=== PATIENT | male | born 1955 | race Hispanic/Latino ===

== ENCOUNTER 2021-03-24 04:37 | Inpatient (IN) | payer MEDICARE ==
[2021-03-24 06:24] LABS: Hematocrit 45.8 % (35.5-45.6); Hemoglobin 15.4 gm/dl (11.8-15.2); Mean Corpuscular HGB Conc 34 % (32-34); Mean Corpuscular Volume 104 fl (84-94); Platelet Count 187 K/mm3 (140-440); Red Blood Count 4.42 M/mm3 (3.65-5.03); Red Cell Distribution Width 14.3 % (13.2-15.2)
--- NOTE | 2021-03-24 06:35 | Emergency Department Report ---
HPI - General Chief Complaint: Nausea/Vomiting/Diarrhea Time Seen by Provider: 03/24/21 06:30 - HPI HPI: 66-year-old male presents to the emergency department with complaint of a 4 to 5-day history of copious diarrhea and fever. There currently driving up from [place] on the way back home to [facility]. Patient's says that he had a fever about 102.5 when she checked it on Saturday night. 2 nights ago the patient had a low temperature of about 91 F. She wrapped in blankets and got his temperature back to about 98 F, but after speaking with her PCP in [place] they called EMS. EMS came out to evaluate him and felt that he was dehydrated. The patient had "another fall" yesterday. Patient is a history of esophageal cancer from 4 years ago that is currently in remission. The patient recently was found to have bilateral PE and lower extremity DVT and was hospitalized in [place] about 6 weeks ago. He is currently on Eliquis and has been taking it compliantly. Patient has some mild abdominal pain just prior to having a bowel movement and then it resolves. ED Past Medical Hx - Past Medical History Previous Medical History?: Yes Hx of Cancer: Yes Additional medical history: DVT PE - Surgical History Past Surgical History?: Yes Additional Surgical History: knee surgery - Medications Home Medications: Home Medications Medication Instructions Recorded Confirmed Last Taken Type Apixaban [Eliquis] 5 mg PO Q12H 03/24/21 03/24/21 03/24/21 History 5 mg Budesonide/Formoterol Fumarate 2 puff IH BID 03/24/21 03/24/21 03/23/21 History [Symbicort 160-4.5 Mcg Inhaler] 2 puff Glucosamine/D3/Boswellia Laquita 2 tab PO QAM 03/24/21 03/24/21 03/23/21 History [Osteo Bi-Flex Tablet] 2 tab Ipratropium Lindsay 2 spray NS BID 03/24/21 03/24/21 03/23/21 History 2 sprays Multivit-Mins/Iron/Folic/Lycop 1 each PO QDAY 03/24/21 03/24/21 03/23/21 History [Centrum Men's Tablet] 1 tab OLANZapine [Zyprexa] 5 mg PO QHS 03/24/21 03/24/21 03/23/21 History 5 mg Pantoprazole [Protonix] 40 mg PO QDAY 03/24/21 03/24/21 03/23/21 History 40 mg Rosuvastatin Calcium 5 mg PO QHS 03/24/21 03/24/21 03/23/21 History 5 mg Sennosides/Docusate Sodium 2 each PO QHS 03/24/21 03/24/21 03/19/21 History [Senna-S 8.6-50 mg Tablet] 2 tabs Tamsulosin [Flomax] 0.4 mg PO QDAY 03/24/21 03/24/21 03/23/21 History 0.4mg clonazePAM [ Klonopin] 0.5 mg PO BID PRN 03/24/21 03/24/21 03/23/21 History 0.5mg ED Review of Systems ROS: Stated complaint: DIARRHEA/FEVER/DEHYDRATED Other details as noted in HPI Comment: All other systems reviewed and negative Constitutional: weakness. denies: chills, fever Eyes: denies: eye pain, vision change ENT: denies: ear pain, throat pain Respiratory: denies: cough, shortness of breath Cardiovascular: denies: chest pain, palpitations Gastrointestinal: abdominal pain, diarrhea. denies: vomiting Genitourinary: denies: dysuria, discharge Musculoskeletal: denies: back pain, arthralgia Skin: denies: rash, lesions Neurological: denies: headache, weakness Physical Exam - Physical Exam Vital Signs: Vital Signs 03/24/21 04:44 Temperature 97.9 F Pulse Rate 69 Respiratory 18 Rate Blood Pressure 73/42 O2 Sat by Pulse 100 Oximetry Physical Exam: GENERAL: The patient is frail and ill-appearing. HENT: Normocephalic. Atraumatic. Patient has moist mucous membranes. EYES: Extraocular motions are intact. NECK: Supple. Trachea is midline. CHEST/LUNGS: Clear to auscultation. There is no respiratory distress noted. HEART/CARDIOVASCULAR: Regular. There is mild tachycardia. There is no murmur. ABDOMEN: Abdomen is soft, nontender. Patient has hyperactive bowel sounds. There is no abdominal distention. SKIN: Skin is warm and dry. Patient has abrasions to the dorsal right hand. NEURO: The patient is awake, alert, and oriented. The patient is cooperative. The patient has no focal neurologic deficits. Normal speech. Cranial nerves II through XII grossly intact. MUSCULOSKELETAL: There is no tenderness or deformity. ED Course Vital Signs 03/24/21 04:44 Temperature 97.9 F Pulse Rate 69 Respiratory 18 Rate Blood Pressure 73/42 O2 Sat by Pulse 100 Oximetry ED Medical Decision Making - Lab Data Result diagrams: 03/24/21 05:59 03/24/21 06:02 Lab Results 03/24/21 03/24/21 03/24/21 Range/Units 05:59 06:02 06:02 WBC 5.4 (4.5-11.0) K/mm3 RBC 4.42 (3.65-5.03) M/mm3 Hgb 15.4 H (11.8-15.2) gm/dl Hct 45.8 H (35.5-45.6) % MCV 104 H (84-94) fl MCH 35 H (28-32) pg MCHC 34 (32-34) % RDW 14.3 (13.2-15.2) % Plt Count 187 (140-440) K/mm3 Add Manual Diff Complete Total Counted 100 Seg Neuts % (Manual) 75.0 H (40.0-70.0) % Band Neutrophils % 10.0 % Lymphocytes % (Manual) 6.0 L (13.4-35.0) % Monocytes % (Manual) 8.0 H (0.0-7.3) % Myelocytes % 1.0 % Nucleated RBC % Not Reportable Seg Neutrophils # Man 4.1 (1.8-7.7) K/mm3 Band Neutrophils # 0.5 K/mm3 Lymphocytes # (Manual) 0.3 L (1.2-5.4) K/mm3 Abs React Lymphs (Man) 0.0 K/mm3 Monocytes # (Manual) 0.4 (0.0-0.8) K/mm3 Eosinophils # (Manual) 0.0 (0.0-0.4) K/mm3 Basophils # (Manual) 0.0 (0.0-0.1) K/mm3 Metamyelocytes # 0.0 K/mm3 Myelocytes # 0.1 K/mm3 Promyelocytes # 0.0 K/mm3 Blast Cells # 0.0 K/mm3 WBC Morphology Not Reportable Hypersegmented Neuts Not Reportable Hyposegmented Neuts Not Reportable Hypogranular Neuts Not Reportable Smudge Cells Not Reportable Toxic Granulation Not Reportable Toxic Vacuolation Not Reportable Dohle Bodies Not Reportable Pelger-Huet Anomaly Not Reportable Luzmaria Rods Not Reportable Platelet Estimate Consistent w auto Clumped Platelets Not Reportable Plt Clumps, EDTA Not Reportable Large Platelets Not Reportable Giant Platelets Not Reportable Platelet Satelliting Not Reportable Plt Morphology Comment Not Reportable RBC Morphology Not Reportable Dimorphic RBCs Not Reportable Polychromasia Not Reportable Hypochromasia Not Reportable Poikilocytosis Not Reportable Anisocytosis Not Reportable Microcytosis Not Reportable Macrocytosis 1+ Spherocytes Not Reportable Pappenheimer Bodies Not Reportable Sickle Cells Not Reportable Target Cells Not Reportable Tear Drop Cells Not Reportable Ovalocytes Not Reportable Helmet Cells Not Reportable Ibanez-Wiggins Bodies Not Reportable Aledo Rings Not Reportable Deerfield Cells Not Reportable Bite Cells Not Reportable Crenated Cell Not Reportable Elliptocytes Not Reportable Acanthocytes (Spur) Not Reportable Rouleaux Not Reportable Hemoglobin C Crystals Not Reportable Schistocytes Not Reportable Malaria parasites Not Reportable Anil Bodies Not Reportable Hem Pathologist Commnt No Sodium 128 L (137-145) mmol/L Potassium 2.7 L* (3.6-5.0) mmol/L Chloride 83.6 L (98-107) mmol/L Carbon Dioxide 24 (22-30) mmol/L Anion Gap 23 mmol/L BUN 32 H (9-20) mg/dL Creatinine 2.7 H (0.8-1.3) mg/dL Estimated GFR 24 ml/min BUN/Creatinine Ratio 12 % Glucose 153 H (75-100) mg/dL Calcium 8.6 (8.4-10.2) mg/dL Magnesium (1.7-2.3) mg/dL Total Bilirubin 1.60 H (0.1-1.2) mg/dL AST 110 H (5-40) units/L ALT 42 (7-56) units/L Alkaline Phosphatase 156 H (35-129) units/L Troponin T < 0.010 (0.00-0.029) ng/mL Total Protein 7.6 (6.3-8.2) g/dL Albumin 3.2 L (3.9-5) g/dL Albumin/Globulin Ratio 0.7 % 03/24/21 Range/Units 06:02 WBC (4.5-11.0) K/mm3 RBC (3.65-5.03) M/mm3 Hgb (11.8-15.2) gm/dl Hct (35.5-45.6) % MCV (84-94) fl MCH (28-32) pg MCHC (32-34) % RDW (13.2-15.2) % Plt Count (140-440) K/mm3 Add Manual Diff Total Counted Seg Neuts % (Manual) (40.0-70.0) % Band Neutrophils % % Lymphocytes % (Manual) (13.4-35.0) % Monocytes % (Manual) (0.0-7.3) % Myelocytes % % Nucleated RBC % Seg Neutrophils # Man (1.8-7.7) K/mm3 Band Neutrophils # K/mm3 Lymphocytes # (Manual) (1.2-5.4) K/mm3 Abs React Lymphs (Man) K/mm3 Monocytes # (Manual) (0.0-0.8) K/mm3 Eosinophils # (Manual) (0.0-0.4) K/mm3 Basophils # (Manual) (0.0-0.1) K/mm3 Metamyelocytes # K/mm3 Myelocytes # K/mm3 Promyelocytes # K/mm3 Blast Cells # K/mm3 WBC Morphology Hypersegmented Neuts Hyposegmented Neuts Hypogranular Neuts Smudge Cells Toxic Granulation Toxic Vacuolation Dohle Bodies Pelger-Huet Anomaly Luzmaria Rods Platelet Estimate Clumped Platelets Plt Clumps, EDTA Large Platelets Giant Platelets Platelet Satelliting Plt Morphology Comment RBC Morphology Dimorphic RBCs Polychromasia Hypochromasia Poikilocytosis Anisocytosis Microcytosis Macrocytosis Spherocytes Pappenheimer Bodies Sickle Cells Target Cells Tear Drop Cells Ovalocytes Helmet Cells Ibanez-Wiggins Bodies Aledo Rings Ronaldo Cells Bite Cells Crenated Cell Elliptocytes Acanthocytes (Spur) Rouleaux Hemoglobin C Crystals Schistocytes Malaria parasites Anil Bodies Hem Pathologist Commnt Sodium (137-145) mmol/L Potassium (3.6-5.0) mmol/L Chloride (98-107) mmol/L Carbon Dioxide (22-30) mmol/L Anion Gap mmol/L BUN (9-20) mg/dL Creatinine (0.8-1.3) mg/dL Estimated GFR ml/min BUN/Creatinine Ratio % Glucose (75-100) mg/dL Calcium (8.4-10.2) mg/dL Magnesium 1.50 L (1.7-2.3) mg/dL Total Bilirubin (0.1-1.2) mg/dL AST (5-40) units/L ALT (7-56) units/L Alkaline Phosphatase (35-129) units/L Troponin T (0.00-0.029) ng/mL Total Protein (6.3-8.2) g/dL Albumin (3.9-5) g/dL Albumin/Globulin Ratio % - Radiology Data Radiology results: image reviewed interpreted by me: Chest x-ray does not show any acute process. There are no pleural effusions, obvious pneumonia and there is no pneumothorax. No widened mediastinum. Abdominal x-ray shows nonspecific nonobstructive bowel gas. No free air. - Medical Decision Making This patient presented to the emergency department with a 5-day history of diarrhea, some recent fevers, and some generalized weakness including a fall earlier this morning. On examination the patient does not have any focal, motor or sensory deficits and his cranial nerves are intact. The abdomen is soft, nondistended, but has hyperactive bowel sounds. Patient's labs shows multiple electrolyte derangements including hypokalemia, hypochloremia, hypomagnesemia, hyponatremia, and the patient has acute kidney injury with a GFR of 24. The patient was found to be hypotensive with initial map of about 54. The patient has been started on IV fluid resuscitation, stool samples have been sent, and the patient will be admitted to the hospital for further evaluation and treatment. Critical Care Time: Yes Critical care time in (mins) excluding proc time.: 35 Critical care attestation.: If time is entered above; I have spent that time in minutes in the direct care of this critically ill patient, excluding procedure time. Critical care time was spent on this patient in doing his initial evaluation, multiple reevaluations, ordering and interpretation of labs and imaging, IV fluid resuscitation for his hypotension, potassium/magnesium/sodium replacement for his multiple electrolyte derangements, multiple discussions with the patient and his . Critical Care Time: 35 minutes ED Disposition Clinical Impression: Hypokalemia, Hypochloremia, Hyponatremia syndrome, Acute kidney injury Hypotension Qualifiers: Hypotension type: unspecified hypotension type Qualified Code(s): I95.9 - Hypotension, unspecified Diarrhea Qualifiers: Diarrhea type: unspecified type Qualified Code(s): R19.7 - Diarrhea, unspecified Disposition: 09 ADMITTED INPATIENT Is pt being admited?: Yes Condition: Serious Time of Disposition: 08:10
[2021-03-24 06:41] LABS: Albumin 3.2 g/dL (3.9-5); Calcium 8.6 mg/dL (8.4-10.2)
--- NOTE | 2021-03-24 08:33 | XRay Report ---
XR abd series w cxr 1V INDICATION / CLINICAL INFORMATION: abd pain, weakness. COMPARISON: None available. FINDINGS: SUPPORT DEVICES: None. HEART / MEDIASTINUM: No significant abnormality. LUNGS / PLEURA: Postoperative changes the right lung. Surrounding parenchyma opacities could be scarr ing..Costophrenic sulci are sharp. No pneumothorax. ABDOMEN: Nonobstructive bowel gas pattern. No pneumoperitoneum. ADDITIONAL FINDINGS: No significant additional findings. IMPRESSION: 1. No acute findings. 2. Nonobstructive bowel gas pattern. Signer Name: Hardik Curtis MD Signed: 03/24/2021 8:29 AM Workstation Name: [id number]
[2021-03-24] MEDS: POTASSIUM CHLORIDE 10 MEQ 10 MEQ/100 ML BAG IV SCH ×2 (08:56→13:48)
[2021-03-24] MEDS ORDERED: POTASSIUM CHLORIDE ER 20 MEQ TAB PO NR (09:00)
[2021-03-24] MEDS ORDERED: SODIUM CHLORIDE 0.9% 1000 ML 1,000 ML IV ONE ×2 (09:00→12:33)
[2021-03-24] MEDS ORDERED: MAGNESIUM SULFATE 1 GM in SODIUM CHLORIDE 0.9% 50 ML IV ONE (09:30)
[2021-03-24] MEDS ORDERED: SODIUM CHLORIDE 0.9% 1000 ML 1,000 ML ONE (12:21)
[2021-03-24 12:59] LABS: Band Neutrophils # (Manual) 0.5 K/mm3; Macrocytosis 1+; Myelocytes # (Manual) 0.1 K/mm3; Total Cells Counted 100
[2021-03-24 13:00] LABS: Platelet Estimate Consistent w Auto
[2021-03-24] MEDS ORDERED: SODIUM CHLORIDE 0.9% 100 ML IVPB IV SCH (13:00)
[2021-03-24] MEDS ORDERED: POTASSIUM CHLORIDE 10 MEQ 10 MEQ/100 ML BAG IV SCH (14:00)
[2021-03-24] MEDS ORDERED: ONDANSETRON 4 MG/2 ML INJ IV PRN (14:55)
[2021-03-24] MEDS ORDERED: ACETAMINOPHEN 325 MG TAB PO PRN (14:55)
[2021-03-24] MEDS ORDERED: HYDROcodone/ACETAMINOPHEN 5-325 MG TAB PO PRN (14:57)
[2021-03-24] MEDS ORDERED: SODIUM CHLORIDE 0.9% 1000 ML 1,000 ML IV SCH (15:00)
--- NOTE | 2021-03-24 15:07 | History and Physical Report ---
History of Present Illness Date of examination: 03/24/21 Date of admission: 03/24/21 08:10 Chief complaint: abd pain History of present illness: 66-year-old male presents to the emergency department with complaint of a 4 to 5-day history of copious diarrhea and fever. There currently driving up from [place] on the way back home to [facility]. Patient's says that he had a fever about 102.5 when she checked it on Saturday night. 2 nights ago the patient had a low temperature of about 91 F. She wrapped in blankets and got his temperature back to about 98 F, but after speaking with her PCP in [place] they called EMS. EMS came out to evaluate him and felt that he was dehydrated. The patient had "another fall" yesterday. Patient is a history of esophageal cancer from 4 years ago that is currently in remission. The patient recently was found to have bilateral PE and lower extremity DVT and was hospitalized in [place] about 6 weeks ago. He is currently on Eliquis and has been taking it compliantly. Patient has some mild abdominal pain just prior to having a bowel movement and then it resolves. Past History Past Medical History: other (esophageal CA) Past Surgical History: No surgical history Social history: no significant social history Family history: no significant family history Medications and Allergies Allergies Allergy/AdvReac Type Severity Reaction Status Date / Time No Known Allergies Allergy Verified 03/24/21 10:41 Home Medications Medication Instructions Recorded Confirmed Last Taken Type Apixaban [Eliquis] 5 mg PO Q12H 03/24/21 03/24/21 03/24/21 History 5 mg Budesonide/Formoterol Fumarate 2 puff IH BID 03/24/21 03/24/21 03/23/21 History [Symbicort 160-4.5 Mcg Inhaler] 2 puff Glucosamine/D3/Boswellia Laquita 2 tab PO QAM 03/24/21 03/24/21 03/23/21 History [Osteo Bi-Flex Tablet] 2 tab Ipratropium Cooper 2 spray NS BID 03/24/21 03/24/21 03/23/21 History 2 sprays Multivit-Mins/Iron/Folic/Lycop 1 each PO QDAY 03/24/21 03/24/21 03/23/21 History [Centrum Men's Tablet] 1 tab OLANZapine [Zyprexa] 5 mg PO QHS 03/24/21 03/24/21 03/23/21 History 5 mg Pantoprazole [Protonix] 40 mg PO QDAY 03/24/21 03/24/21 03/23/21 History 40 mg Rosuvastatin Calcium 5 mg PO QHS 03/24/21 03/24/21 03/23/21 History 5 mg Sennosides/Docusate Sodium 2 each PO QHS 03/24/21 03/24/21 03/19/21 History [Senna-S 8.6-50 mg Tablet] 2 tabs Tamsulosin [Flomax] 0.4 mg PO QDAY 03/24/21 03/24/21 03/23/21 History 0.4mg clonazePAM [ Klonopin] 0.5 mg PO BID PRN 03/24/21 03/24/21 03/23/21 History 0.5mg Active Meds: Active Medications Acetaminophen (Acetaminophen 325 Mg Tab) 650 mg PO Q4H PRN PRN Reason: Pain MILD(1-3)/Fever >100.5/BARRY Hydrocodone Bitart/Acetaminophen (Hydrocodone/Acetaminophen 5-325 Mg Tab) 2 each PO Q6H PRN PRN Reason: Pain, Moderate (4-6) Heparin Sodium (Porcine) (Heparin 5,000 Unit/1 Ml Vial) 5,000 unit SUB-Q Q8HR SURESH Sodium Chloride (Nacl 0.9% 1000 Ml) 1,000 mls @ 75 mls/hr IV DIRECT SURESH Sodium Chloride (Nacl 0.9% 1000 Ml) 1,000 mls @ 75 mls/hr IV DIRECT SURESH Levofloxacin/Dextrose (Levaquin 500mg/100ml) 500 mg in 100 mls @ 100 mls/hr IV Q24H SURESH; Protocol Morphine Sulfate (Morphine 4 Mg/1 Ml Inj) 2 mg IV Q4H PRN PRN Reason: Pain , Severe (7-10) Ondansetron HCl (Ondansetron 4 Mg/2 Ml Inj) 4 mg IV Q8H PRN PRN Reason: Nausea And Vomiting Sodium Chloride (Sodium Chloride 0.9% 10 Ml Flush Syringe) 10 ml IV BID SURESH Sodium Chloride (Sodium Chloride 0.9% 10 Ml Flush Syringe) 10 ml IV PRN PRN PRN Reason: LINE FLUSH Review of Systems All systems: negative Exam - Constitutional Vitals: Temp Pulse Resp BP Pulse Ox 97.9 F 99 H 15 92/61 93 03/24/21 04:44 03/24/21 14:30 03/24/21 14:30 03/24/21 14:30 03/24/21 14:30 General appearance: Present: no acute distress, well-nourished - EENT Eyes: Present: PERRL ENT: hearing intact, clear oral mucosa - Neck Neck: Present: supple, normal ROM - Respiratory Respiratory effort: normal Respiratory: bilateral: CTA - Cardiovascular Heart Sounds: Present: S1 & S2. Absent: rub, click - Extremities Extremities: pulses symmetrical, No edema Peripheral Pulses: within normal limits - Abdominal General gastrointestinal: Present: soft, non-tender, non-distended, normal bowel sounds Male genitourinary: Present: normal - Integumentary Integumentary: Present: clear, warm, dry - Musculoskeletal Musculoskeletal: gait normal, strength equal bilaterally - Psychiatric Psychiatric: appropriate mood/affect, intact judgment & insight - Neurologic Neurologic: CNII-XII intact, moves all extremities HEART Score - HEART Score Troponin: Troponin T < 0.010 ng/mL (0.00-0.029) 03/24/21 06:02 Results - Labs CBC & Chem 7: 03/24/21 05:59 03/24/21 06:02 Labs: Laboratory Last Values WBC 5.4 K/mm3 (4.5-11.0) 03/24/21 05:59 RBC 4.42 M/mm3 (3.65-5.03) 03/24/21 05:59 Hgb 15.4 gm/dl (11.8-15.2) H 03/24/21 05:59 Hct 45.8 % (35.5-45.6) H 03/24/21 05:59 MCV 104 fl (84-94) H 03/24/21 05:59 MCH 35 pg (28-32) H 03/24/21 05:59 MCHC 34 % (32-34) 03/24/21 05:59 RDW 14.3 % (13.2-15.2) 03/24/21 05:59 Plt Count 187 K/mm3 (140-440) 03/24/21 05:59 Add Manual Diff Complete 03/24/21 05:59 Total Counted 100 03/24/21 05:59 Seg Neuts % (Manual) 75.0 % (40.0-70.0) H 03/24/21 05:59 Band Neutrophils % 10.0 % 03/24/21 05:59 Lymphocytes % (Manual) 6.0 % (13.4-35.0) L 03/24/21 05:59 Monocytes % (Manual) 8.0 % (0.0-7.3) H 03/24/21 05:59 Myelocytes % 1.0 % 03/24/21 05:59 Nucleated RBC % Not Reportable 03/24/21 05:59 Seg Neutrophils # Man 4.1 K/mm3 (1.8-7.7) 03/24/21 05:59 Band Neutrophils # 0.5 K/mm3 03/24/21 05:59 Lymphocytes # (Manual) 0.3 K/mm3 (1.2-5.4) L 03/24/21 05:59 Abs React Lymphs (Man) 0.0 K/mm3 03/24/21 05:59 Monocytes # (Manual) 0.4 K/mm3 (0.0-0.8) 03/24/21 05:59 Eosinophils # (Manual) 0.0 K/mm3 (0.0-0.4) 03/24/21 05:59 Basophils # (Manual) 0.0 K/mm3 (0.0-0.1) 03/24/21 05:59 Metamyelocytes # 0.0 K/mm3 03/24/21 05:59 Myelocytes # 0.1 K/mm3 03/24/21 05:59 Promyelocytes # 0.0 K/mm3 03/24/21 05:59 Blast Cells # 0.0 K/mm3 03/24/21 05:59 WBC Morphology Not Reportable 03/24/21 05:59 Hypersegmented Neuts Not Reportable 03/24/21 05:59 Hyposegmented Neuts Not Reportable 03/24/21 05:59 Hypogranular Neuts Not Reportable 03/24/21 05:59 Smudge Cells Not Reportable 03/24/21 05:59 Toxic Granulation Not Reportable 03/24/21 05:59 Toxic Vacuolation Not Reportable 03/24/21 05:59 Dohle Bodies Not Reportable 03/24/21 05:59 Pelger-Huet Anomaly Not Reportable 03/24/21 05:59 Luzmaria Rods Not Reportable 03/24/21 05:59 Platelet Estimate Consistent w auto 03/24/21 05:59 Clumped Platelets Not Reportable 03/24/21 05:59 Plt Clumps, EDTA Not Reportable 03/24/21 05:59 Large Platelets Not Reportable 03/24/21 05:59 Giant Platelets Not Reportable 03/24/21 05:59 Platelet Satelliting Not Reportable 03/24/21 05:59 Plt Morphology Comment Not Reportable 03/24/21 05:59 RBC Morphology Not Reportable 03/24/21 05:59 Dimorphic RBCs Not Reportable 03/24/21 05:59 Polychromasia Not Reportable 03/24/21 05:59 Hypochromasia Not Reportable 03/24/21 05:59 Poikilocytosis Not Reportable 03/24/21 05:59 Anisocytosis Not Reportable 03/24/21 05:59 Microcytosis Not Reportable 03/24/21 05:59 Macrocytosis 1+ 03/24/21 05:59 Spherocytes Not Reportable 03/24/21 05:59 Pappenheimer Bodies Not Reportable 03/24/21 05:59 Sickle Cells Not Reportable 03/24/21 05:59 Target Cells Not Reportable 03/24/21 05:59 Tear Drop Cells Not Reportable 03/24/21 05:59 Ovalocytes Not Reportable 03/24/21 05:59 Helmet Cells Not Reportable 03/24/21 05:59 Ibanez-Weiser Bodies Not Reportable 03/24/21 05:59 [place] Rings Not Reportable 03/24/21 05:59 Ronaldo Cells Not Reportable 03/24/21 05:59 Bite Cells Not Reportable 03/24/21 05:59 Crenated Cell Not Reportable 03/24/21 05:59 Elliptocytes Not Reportable 03/24/21 05:59 Acanthocytes (Spur) Not Reportable 03/24/21 05:59 Rouleaux Not Reportable 03/24/21 05:59 Hemoglobin C Crystals Not Reportable 03/24/21 05:59 Schistocytes Not Reportable 03/24/21 05:59 Malaria parasites Not Reportable 03/24/21 05:59 Anil Bodies Not Reportable 03/24/21 05:59 Hem Pathologist Commnt No 03/24/21 05:59 Sodium 128 mmol/L (137-145) L 03/24/21 06:02 Potassium 2.7 mmol/L (3.6-5.0) L* 03/24/21 06:02 Chloride 83.6 mmol/L (98-107) L 03/24/21 06:02 Carbon Dioxide 24 mmol/L (22-30) 03/24/21 06:02 Anion Gap 23 mmol/L 03/24/21 06:02 BUN 32 mg/dL (9-20) H 03/24/21 06:02 Creatinine 2.7 mg/dL (0.8-1.3) H 03/24/21 06:02 Estimated GFR 24 ml/min 03/24/21 06:02 BUN/Creatinine Ratio 12 % 03/24/21 06:02 Glucose 153 mg/dL (75-100) H 03/24/21 06:02 Calcium 8.6 mg/dL (8.4-10.2) 03/24/21 06:02 Magnesium 1.50 mg/dL (1.7-2.3) L 03/24/21 06:02 Total Bilirubin 1.60 mg/dL (0.1-1.2) H 03/24/21 06:02 AST 110 units/L (5-40) H 03/24/21 06:02 ALT 42 units/L (7-56) 03/24/21 06:02 Alkaline Phosphatase 156 units/L (35-129) H 03/24/21 06:02 Troponin T < 0.010 ng/mL (0.00-0.029) 03/24/21 06:02 Total Protein 7.6 g/dL (6.3-8.2) 03/24/21 06:02 Albumin 3.2 g/dL (3.9-5) L 03/24/21 06:02 Albumin/Globulin Ratio 0.7 % 03/24/21 06:02 Assessment and Plan Assessment and plan: Abd pain with assoc. diarrhea DANIELLE secondary vasomotor nephropathy SIRS hx recent PE hx esophageal CA 03/24/21. Stool for cx and leukocytes. Empiric abx. IVF Hydration. Consider renal consult. CT A/P
[2021-03-24] MEDS: SODIUM CHLORIDE 0.9% 1000 ML 1,000 ML IV SCH ×2 (15:32→18:13)
[2021-03-24] MEDS ORDERED: MORPHINE 2 MG/1 ML INJ IV ONE (15:37)
[2021-03-24] MEDS ORDERED: MORPHINE 2 MG/1 ML INJ IV PRN (15:44)
[2021-03-24] MEDS: HEPARIN 5,000 UNIT/1 ML VIAL SUB-Q SCH (22:47)
[2021-03-25] MEDS ORDERED: SODIUM CHLORIDE 0.9% 500 ML 500 ML IV ONE (06:10)
[2021-03-25] MEDS: HEPARIN 5,000 UNIT/1 ML VIAL SUB-Q SCH ×3 (06:28→23:15)
[2021-03-25 06:30] LABS: Basophils % (Auto) 0.2 % (0.0-1.8); Eosinophils % (Auto) 0.5 % (0.0-4.3); Hematocrit 40.9 % (35.5-45.6); Hemoglobin 13.5 gm/dl (11.8-15.2); Lymphocytes # (Auto) 0.4 K/mm3 (1.2-5.4); Lymphocytes % (Auto) 7.9 % (13.4-35.0); Mean Corpuscular HGB Conc 33 % (32-34); Mean Corpuscular Volume 104 fl (84-94); Monocytes # (Auto) 0.6 K/mm3 (0.0-0.8); Monocytes % (Auto) 12.2 % (0.0-7.3); Platelet Count 177 K/mm3 (140-440); Red Blood Count 3.94 M/mm3 (3.65-5.03); Red Cell Distribution Width 14.3 % (13.2-15.2)
[2021-03-25] MEDS: SODIUM CHLORIDE 0.9% 1000 ML 1,000 ML IV SCH (07:24)
[2021-03-25] MEDS ORDERED: SODIUM CHLORIDE 0.9% 1000 ML 1,000 ML IV ONE (07:31)
[2021-03-25] MEDS ORDERED: POTASSIUM CHLORIDE ER 20 MEQ TAB PO ONE ×2 (07:36→12:00)
--- NOTE | 2021-03-25 08:53 | Progress Note ---
Assessment and Plan Assessment and plan: Abd pain with assoc. diarrhea DANIELLE secondary vasomotor nephropathy SIRS hx recent PE hx esophageal CA 03/24/21. Stool for cx and leukocytes. Empiric abx. IVF Hydration. Consider renal consult. CT A/P 03/25/21. Nurse reports patient with still significant diarrhea and remains hypotensive. Patient hypokalemia this morning is worse at 2.4. Replete potassium. Increase IVF to 125cc/hr and give NS 1L bolus. Follow-up stool culture and fecal leukocytes. Continue empiric antibiotics. Renal function improved. Check CT of the abdomen and pelvis. History Interval history: No new issues Hospitalist Physical - Constitutional Vitals: Temp Pulse Resp BP Pulse Ox 98.1 F 84 18 69/42 94 03/25/21 05:04 03/24/21 21:39 03/25/21 07:41 03/25/21 05:04 03/25/21 07:41 General appearance: Present: no acute distress, well-nourished - EENT Eyes: Present: PERRL, EOM intact ENT: hearing intact, clear oral mucosa, dentition normal - Neck Neck: Present: supple, normal ROM - Respiratory Respiratory effort: normal Respiratory: bilateral: CTA - Cardiovascular Rhythm: regular Heart Sounds: Present: S1 & S2. Absent: gallop, rub - Extremities Extremities: no ischemia, No edema, Full ROM - Abdominal General gastrointestinal: soft, non-tender, non-distended, normal bowel sounds - Integumentary Integumentary: Present: clear, warm, dry - Neurologic Neurologic: CNII-XII intact, moves all extremities HEART Score - HEART Score Troponin: Troponin T < 0.010 ng/mL (0.00-0.029) 03/24/21 06:02 Results - Labs CBC & Chem 7: 03/25/21 04:00 03/25/21 04:00 Labs: Laboratory Last Values WBC 5.2 K/mm3 (4.5-11.0) 03/25/21 04:00 RBC 3.94 M/mm3 (3.65-5.03) 03/25/21 04:00 Hgb 13.5 gm/dl (11.8-15.2) 03/25/21 04:00 Hct 40.9 % (35.5-45.6) 03/25/21 04:00 MCV 104 fl (84-94) H 03/25/21 04:00 MCH 34 pg (28-32) H 03/25/21 04:00 MCHC 33 % (32-34) 03/25/21 04:00 RDW 14.3 % (13.2-15.2) 03/25/21 04:00 Plt Count 177 K/mm3 (140-440) 03/25/21 04:00 Lymph % (Auto) 7.9 % (13.4-35.0) L 03/25/21 04:00 [place] % (Auto) 12.2 % (0.0-7.3) H 03/25/21 04:00 Eos % (Auto) 0.5 % (0.0-4.3) 03/25/21 04:00 Baso % (Auto) 0.2 % (0.0-1.8) 03/25/21 04:00 Lymph # (Auto) 0.4 K/mm3 (1.2-5.4) L 03/25/21 04:00 [place] # (Auto) 0.6 K/mm3 (0.0-0.8) 03/25/21 04:00 Eos # (Auto) 0.0 K/mm3 (0.0-0.4) 03/25/21 04:00 Baso # (Auto) 0.0 K/mm3 (0.0-0.1) 03/25/21 04:00 Add Manual Diff Complete 03/24/21 05:59 Total Counted 100 03/24/21 05:59 Seg Neutrophils % 79.2 % (40.0-70.0) H 03/25/21 04:00 Seg Neuts % (Manual) 75.0 % (40.0-70.0) H 03/24/21 05:59 Band Neutrophils % 10.0 % 03/24/21 05:59 Lymphocytes % (Manual) 6.0 % (13.4-35.0) L 03/24/21 05:59 Monocytes % (Manual) 8.0 % (0.0-7.3) H 03/24/21 05:59 Myelocytes % 1.0 % 03/24/21 05:59 Nucleated RBC % Not Reportable 03/24/21 05:59 Seg Neutrophils # 4.1 K/mm3 (1.8-7.7) 03/25/21 04:00 Seg Neutrophils # Man 4.1 K/mm3 (1.8-7.7) 03/24/21 05:59 Band Neutrophils # 0.5 K/mm3 03/24/21 05:59 Lymphocytes # (Manual) 0.3 K/mm3 (1.2-5.4) L 03/24/21 05:59 Abs React Lymphs (Man) 0.0 K/mm3 03/24/21 05:59 Monocytes # (Manual) 0.4 K/mm3 (0.0-0.8) 03/24/21 05:59 Eosinophils # (Manual) 0.0 K/mm3 (0.0-0.4) 03/24/21 05:59 Basophils # (Manual) 0.0 K/mm3 (0.0-0.1) 03/24/21 05:59 Metamyelocytes # 0.0 K/mm3 03/24/21 05:59 Myelocytes # 0.1 K/mm3 03/24/21 05:59 Promyelocytes # 0.0 K/mm3 03/24/21 05:59 Blast Cells # 0.0 K/mm3 03/24/21 05:59 WBC Morphology Not Reportable 03/24/21 05:59 Hypersegmented Neuts Not Reportable 03/24/21 05:59 Hyposegmented Neuts Not Reportable 03/24/21 05:59 Hypogranular Neuts Not Reportable 03/24/21 05:59 Smudge Cells Not Reportable 03/24/21 05:59 Toxic Granulation Not Reportable 03/24/21 05:59 Toxic Vacuolation Not Reportable 03/24/21 05:59 Dohle Bodies Not Reportable 03/24/21 05:59 Pelger-Huet Anomaly Not Reportable 03/24/21 05:59 Luzmaria Rods Not Reportable 03/24/21 05:59 Platelet Estimate Consistent w auto 03/24/21 05:59 Clumped Platelets Not Reportable 03/24/21 05:59 Plt Clumps, EDTA Not Reportable 03/24/21 05:59 Large Platelets Not Reportable 03/24/21 05:59 Giant Platelets Not Reportable 03/24/21 05:59 Platelet Satelliting Not Reportable 03/24/21 05:59 Plt Morphology Comment Not Reportable 03/24/21 05:59 RBC Morphology Not Reportable 03/24/21 05:59 Dimorphic RBCs Not Reportable 03/24/21 05:59 Polychromasia Not Reportable 03/24/21 05:59 Hypochromasia Not Reportable 03/24/21 05:59 Poikilocytosis Not Reportable 03/24/21 05:59 Anisocytosis Not Reportable 03/24/21 05:59 Microcytosis Not Reportable 03/24/21 05:59 Macrocytosis 1+ 03/24/21 05:59 Spherocytes Not Reportable 03/24/21 05:59 Pappenheimer Bodies Not Reportable 03/24/21 05:59 Sickle Cells Not Reportable 03/24/21 05:59 Target Cells Not Reportable 03/24/21 05:59 Tear Drop Cells Not Reportable 03/24/21 05:59 Ovalocytes Not Reportable 03/24/21 05:59 Helmet Cells Not Reportable 03/24/21 05:59 [place]banez-[place] Bodies Not Reportable 03/24/21 05:59 [place] [employer] Rings Not Reportable 03/24/21 05:59 [place] Cells Not Reportable 03/24/21 05:59 Bite Cells Not Reportable 03/24/21 05:59 Crenated Cell Not Reportable 03/24/21 05:59 Elliptocytes Not Reportable 03/24/21 05:59 Acanthocytes (Spur) Not Reportable 03/24/21 05:59 Rouleaux Not Reportable 03/24/21 05:59 Hemoglobin C Crystals Not Reportable 03/24/21 05:59 Schistocytes Not Reportable 03/24/21 05:59 Malaria parasites Not Reportable 03/24/21 05:59 Anil Bodies Not Reportable 03/24/21 05:59 Hem Pathologist Commnt No 03/24/21 05:59 Sodium 130 mmol/L (137-145) L 03/25/21 04:00 Potassium 2.4 mmol/L (3.6-5.0) L* 03/25/21 04:00 Chloride 91.5 mmol/L (98-107) L 03/25/21 04:00 Carbon Dioxide 23 mmol/L (22-30) 03/25/21 04:00 Anion Gap 18 mmol/L 03/25/21 04:00 BUN 34 mg/dL (9-20) H 03/25/21 04:00 Creatinine 1.7 mg/dL (0.8-1.3) H 03/25/21 04:00 Estimated GFR 40 ml/min 03/25/21 04:00 BUN/Creatinine Ratio 20 % 03/25/21 04:00 Glucose 95 mg/dL (75-100) 03/25/21 04:00 Calcium 8.0 mg/dL (8.4-10.2) L 03/25/21 04:00 Magnesium 1.50 mg/dL (1.7-2.3) L 03/24/21 06:02 Total Bilirubin 1.60 mg/dL (0.1-1.2) H 03/24/21 06:02 AST 110 units/L (5-40) H 03/24/21 06:02 ALT 42 units/L (7-56) 03/24/21 06:02 Alkaline Phosphatase 156 units/L (35-129) H 03/24/21 06:02 Troponin T < 0.010 ng/mL (0.00-0.029) 03/24/21 06:02 Total Protein 7.6 g/dL (6.3-8.2) 03/24/21 06:02 Albumin 3.2 g/dL (3.9-5) L 03/24/21 06:02 Albumin/Globulin Ratio 0.7 % 03/24/21 06:02 [place]ro/IV: Voiding Method Toilet Active Medications - Current Medications Current Medications: Generic Name Dose Route Start Last Admin Trade Name Freq PRN Reason Stop Dose Admin Acetaminophen 650 mg 03/24/21 14:55 Acetaminophen 325 Mg Tab PO Q4H PRN Pain MILD(1-3)/Fever >100.5/BARRY Hydrocodone Bitart/Acetaminophen 2 each 03/24/21 14:57 Hydrocodone/Acetaminophen 5-325 Mg Tab PO Q6H PRN Pain, Moderate (4-6) Heparin Sodium (Porcine) 5,000 unit 03/24/21 22:00 03/25/21 06:28 Heparin 5,000 Unit/1 Ml Vial SUB-Q 5,000 unit Q8HR SURESH Administration Levofloxacin/Dextrose 500 mg in 100 mls @ 100 mls/hr 03/24/21 16:00 03/24/21 17:18 Levaquin 500mg/100ml IV 100 mls/hr Q24H SURESH Administration Protocol Potassium Chloride/Sodium Chloride 40 meq in 1,000 mls @ 125 mls/hr 03/25/21 08:00 Ns/Kcl 40meq IV DIRECT SURESH Morphine Sulfate 4 mg 03/24/21 15:44 Morphine 2 Mg/1 Ml Inj IV Q4H PRN Pain , Severe (7-10) Ondansetron HCl 4 mg 03/24/21 14:55 Ondansetron 4 Mg/2 Ml Inj IV Q8H PRN Nausea And Vomiting Potassium Chloride 40 meq 03/25/21 12:00 Potassium Chloride Er 20 Meq Tab PO 03/25/21 12:01 ONCE ONE Sodium Chloride 10 ml 03/24/21 22:00 03/24/21 22:47 Sodium Chloride 0.9% 10 Ml Flush Syringe IV 10 ml BID SURESH Administration Sodium Chloride 10 ml 03/24/21 14:55 Sodium Chloride 0.9% 10 Ml Flush Syringe IV PRN PRN LINE FLUSH
[2021-03-25] MEDS: NACL 0.9%/KCL 40 MEQ 40 MEQ/1,000 ML BAG IV SCH ×2 (11:09→23:17)
--- NOTE | 2021-03-25 11:16 | Gastroenterology Consultation ---
History of Present Illness - Reason for Consult Consult date: 03/25/21 Diarrhea Requesting physician: NEREIDA BRUCE - History of Present Illness The patient is seen with his ; they both provide the history. They were on vacation in [facility] when he developed acute diarrhea, watery, with fevers. He normally has 1-2 BM/day, but now it is up to 5-6/day. He denies emesis (can't because of prior esophagus surgery) but has been able to tolerate solids/liquids. His fevers resolved a few days ago. There were no ill contacts or recent antibiotics. 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 He has no CP or SOB. He does have mildly elevated LFTs and DANIELLE; he has no hx of hepatitis, and COVID was n egative last week (and vaccinated with Moderna). There is no blood in the stools. He does not eat seafood, and denies raw meat consumption. No other new medications besides Eliquis. His last colonoscopy was 5 years ago and WNL. Past History Past Medical History: DVT, pulmonary embolism, other (esophageal CA) Past Surgical History: Other (Esophagectomy with gastric pull-up) Social history: lives with family. denies: smoking, alcohol abuse Family history: no significant family history Medications and Allergies Allergies Allergy/AdvReac Type Severity Reaction Status Date / Time No Known Allergies Allergy Verified 03/24/21 10:41 Home Medications Medication Instructions Recorded Confirmed Last Taken Type Apixaban [Eliquis] 5 mg PO Q12H 03/24/21 03/24/21 03/24/21 History 5 mg Budesonide/Formoterol Fumarate 2 puff IH BID 03/24/21 03/24/21 03/23/21 History [Symbicort 160-4.5 Mcg Inhaler] 2 puff Glucosamine/D3/Boswellia Laquita 2 tab PO QAM 03/24/21 03/24/21 03/23/21 History [Osteo Bi-Flex Tablet] 2 tab Ipratropium [place] 2 spray NS BID 03/24/21 03/24/21 03/23/21 History 2 sprays Multivit-Mins/Iron/Folic/Lycop 1 each PO QDAY 03/24/21 03/24/21 03/23/21 History [Centrum Men's Tablet] 1 tab OLANZapine [Zyprexa] 5 mg PO QHS 03/24/21 03/24/21 03/23/21 History 5 mg Pantoprazole [Protonix] 40 mg PO QDAY 03/24/21 03/24/21 03/23/21 History 40 mg Rosuvastatin Calcium 5 mg PO QHS 03/24/21 03/24/21 03/23/21 History 5 mg Sennosides/Docusate Sodium 2 each PO QHS 03/24/21 03/24/21 03/19/21 History [Senna-S 8.6-50 mg Tablet] 2 tabs Tamsulosin [Flomax] 0.4 mg PO QDAY 03/24/21 03/24/21 03/23/21 History 0.4mg clonazePAM [ Klonopin] 0.5 mg PO BID PRN 03/24/21 03/24/21 03/23/21 History 0.5mg Active Meds: Active Medications Acetaminophen (Acetaminophen 325 Mg Tab) 650 mg PO Q4H PRN PRN Reason: Pain MILD(1-3)/Fever >100.5/BARRY Hydrocodone Bitart/Acetaminophen (Hydrocodone/Acetaminophen 5-325 Mg Tab) 2 each PO Q6H PRN PRN Reason: Pain, Moderate (4-6) Heparin Sodium (Porcine) (Heparin 5,000 Unit/1 Ml Vial) 5,000 unit SUB-Q Q8HR SURESH Last Admin: 03/25/21 06:28 Dose: 5,000 unit Documented by: Levofloxacin/Dextrose (Levaquin 500mg/100ml) 500 mg in 100 mls @ 100 mls/hr IV Q24H SURESH; Protocol Last Admin: 03/24/21 17:18 Dose: 100 mls/hr Documented by: Potassium Chloride/Sodium Chloride (Ns/Kcl 40meq) 40 meq in 1,000 mls @ 125 mls/hr IV DIRECT SURESH Last Admin: 03/25/21 11:09 Dose: 125 mls/hr Documented by: Morphine Sulfate (Morphine 2 Mg/1 Ml Inj) 4 mg IV Q4H PRN PRN Reason: Pain , Severe (7-10) Ondansetron HCl (Ondansetron 4 Mg/2 Ml Inj) 4 mg IV Q8H PRN PRN Reason: Nausea And Vomiting Potassium Chloride (Potassium Chloride Er 20 Meq Tab) 40 meq PO ONCE ONE Stop: 03/25/21 12:01 Sodium Chloride (Sodium Chloride 0.9% 10 Ml Flush Syringe) 10 ml IV BID SURESH Last Admin: 03/24/21 22:47 Dose: 10 ml Documented by: Sodium Chloride (Sodium Chloride 0.9% 10 Ml Flush Syringe) 10 ml IV PRN PRN PRN Reason: LINE FLUSH I HAVE REVIEWED/RECONCILED MEDS Review of Systems - Review of Systems All systems: negative (as noted in the HPI) Constitutional: fatigue Exam - Constitutional Vital Signs: Temp Pulse Resp BP Pulse Ox 98.1 F 84 18 69/42 94 03/25/21 05:04 03/24/21 21:39 03/25/21 07:41 03/25/21 05:04 03/25/21 07:41 General appearance: no acute distress - EENT Eyes: PERRL, EOM intact ENT: hearing intact, clear oral mucosa - Neck Neck: supple, normal ROM - Respiratory Respiratory effort: normal Respiratory: bilateral: CTA - Cardiovascular Rhythm: regular Heart Sounds: Present: S1 & S2 Extremities: no ischemia, No edema - Gastrointestinal General gastrointestinal: Present: soft, non-tender, non-distended - Integumentary Integumentary: Present: clear (Multiple bruises), warm, dry - Neurologic Neurological: alert and oriented x3 - Labs CBC & Chem 7: 03/25/21 04:00 03/25/21 04:00 Lab Results: Laboratory Results - last 24 hr 03/24/21 03/25/21 03/25/21 05:59 04:00 04:00 WBC 5.2 RBC 3.94 Hgb 13.5 Hct 40.9 MCV 104 H MCH 34 H MCHC 33 RDW 14.3 Plt Count 177 Lymph % (Auto) 7.9 L [place] % (Auto) 12.2 H Eos % (Auto) 0.5 Baso % (Auto) 0.2 Lymph # (Auto) 0.4 L [place] # (Auto) 0.6 Eos # (Auto) 0.0 Baso # (Auto) 0.0 Add Manual Diff Complete Total Counted 100 Seg Neutrophils % 79.2 H Seg Neuts % (Manual) 75.0 H Band Neutrophils % 10.0 Lymphocytes % (Manual) 6.0 L Monocytes % (Manual) 8.0 H Myelocytes % 1.0 Nucleated RBC % Not Reportable Seg Neutrophils # 4.1 Seg Neutrophils # Man 4.1 Band Neutrophils # 0.5 Lymphocytes # (Manual) 0.3 L Abs React Lymphs (Man) 0.0 Monocytes # (Manual) 0.4 Eosinophils # (Manual) 0.0 Basophils # (Manual) 0.0 Metamyelocytes # 0.0 Myelocytes # 0.1 Promyelocytes # 0.0 Blast Cells # 0.0 WBC Morphology Not Reportable Hypersegmented Neuts Not Reportable Hyposegmented Neuts Not Reportable Hypogranular Neuts Not Reportable Smudge Cells Not Reportable Toxic Granulation Not Reportable Toxic Vacuolation Not Reportable Dohle Bodies Not Reportable Pelger-Huet Anomaly Not Reportable Luzmaria Rods Not Reportable Platelet Estimate Consistent w auto Clumped Platelets Not Reportable Plt Clumps, EDTA Not Reportable Large Platelets Not Reportable Giant Platelets Not Reportable Platelet Satelliting Not Reportable Plt Morphology Comment Not Reportable RBC Morphology Not Reportable Dimorphic RBCs Not Reportable Polychromasia Not Reportable Hypochromasia Not Reportable Poikilocytosis Not Reportable Anisocytosis Not Reportable Microcytosis Not Reportable Macrocytosis 1+ Spherocytes Not Reportable Pappenheimer Bodies Not Reportable Sickle Cells Not Reportable Target Cells Not Reportable Tear Drop Cells Not Reportable Ovalocytes Not Reportable Helmet Cells Not Reportable Ibanez-[place] Bodies Not Reportable [place] Rings Not Reportable [place] Cells Not Reportable Bite Cells Not Reportable Crenated Cell Not Reportable Elliptocytes Not Reportable Acanthocytes (Spur) Not Reportable Rouleaux Not Reportable Hemoglobin C Crystals Not Reportable Schistocytes Not Reportable Malaria parasites Not Reportable Anil Bodies Not Reportable Hem Pathologist Commnt No Sodium 130 L Potassium 2.4 L* Chloride 91.5 L Carbon Dioxide 23 Anion Gap 18 BUN 34 H Creatinine 1.7 H Estimated GFR 40 BUN/Creatinine Ratio 20 Glucose 95 Calcium 8.0 L Assessment and Plan - Patient Problems (1) Abnormal liver enzymes Current Visit: Yes Status: Acute Plan to address problem: - May be from hypotension/dehydration, but will check routine hepatitis panel. Covid already negative/fully vacced. - Continue aggressive hydration. - Not clear related to diarrhea, but atypical agents possible; if not clinically improved tomorrow, may add doxycycline. (2) Diarrhea Current Visit: Yes Status: Acute Qualifiers: Diarrhea type: unspecified type Qualified Code(s): R19.7 - Diarrhea, unspecified Plan to address problem: - Stool cultures pending, and currently stable/improved on Levofloxacin. - Continue regular diet. - No recent abx, and WBC/fever WNL, so doubt C diff, but would have low threshold to starting empiric treatment.
--- NOTE | 2021-03-25 13:50 | Cat Scan Report ---
CT OF THE ABDOMEN AND PELVIS WITHOUT CONTRAST INDICATION / CLINICAL INFORMATION: Abdominal pain. TECHNIQUE: All CT scans at this location are performed using CT dose reduction for ALARA by means of automated exposure control. COMPARISON: None available. FINDINGS: ABDOMEN: There are surgical changes involving the stomach with most of the stomach in the right lower chest, likely related to gastric pull-through surgery. There is mild to moderate generalized increas ed fluid throughout the large and small bowel without bowel wall thickening, obstruction or free air. The liver measures 19.8 cm in length and demonstrates moderate generalized decreased density compared to the spleen without focal lesion. There is probable minimal cholelithiasis without gallbladder wal l thickening or bile duct dilatation. The pancreas, spleen, adrenal glands and kidneys demonstrate no significant abnormality. No adenopathy is seen. There are multiple small fat-containing epigastric v entral hernias without acute complication. There are atherosclerotic calcifications involving the abd ominal aorta and its branches without aneurysm. There are moderate emphysematous changes in both lower lung zones. There is old calcified granulomato us disease in the right hemithorax. Mild bibasilar subsegmental atelectasis is present. PELVIS: There is moderate diffuse thickening of the wall of the urinary bladder. The prostate gland i s mildly enlarged. The seminal vesicles are normal. The distal ureters are unremarkable. A normal tena endix is present and there is no evidence of diverticulitis. No abnormal mass or fluid collection is seen. I do not identify a hernia. There is mild spondylosis. IMPRESSION: 1. Generalized increased fluid throughout the large and small bowel without wall thickening or obstru ction. Differential diagnosis includes low-grade gastroenteritis/enterocolitis versus recent laxative s/enemas. 2. Hepatomegaly with moderate diffuse fatty infiltration. Probable cholelithiasis without CT evidence of acute cholecystitis. 3. Multiple small fat-containing midline epigastric ventral hernias without acute complication. 4. Diffuse thickening of the wall of the urinary bladder is nonspecific, but most commonly related to hypertrophy. 5. Emphysema. Signer Name: Simón Drake MD Signed: 03/25/2021 1:45 PM Workstation Name: [id number]
[2021-03-26 05:56] VITALS: BP 90/65
[2021-03-26] MEDS: NACL 0.9%/KCL 40 MEQ 40 MEQ/1,000 ML BAG IV SCH (06:08)
[2021-03-26] MEDS: HEPARIN 5,000 UNIT/1 ML VIAL SUB-Q SCH (06:11)
[2021-03-26 06:32] LABS: Hematocrit 35.5 % (35.5-45.6); Hemoglobin 11.6 gm/dl (11.8-15.2); Mean Corpuscular HGB Conc 33 % (32-34); Mean Corpuscular Volume 103 fl (84-94); Platelet Count 125 K/mm3 (140-440); Red Blood Count 3.44 M/mm3 (3.65-5.03); Red Cell Distribution Width 14.3 % (13.2-15.2)
[2021-03-26 06:50] LABS: Alanine Aminotransferase 26 units/L (7-56); Albumin 2.3 g/dL (3.9-5); BUN/Creatinine Ratio 20; Blood Urea Nitrogen 20 mg/dL (9-20); Calcium 7.6 mg/dL (8.4-10.2); Hemolysis Index 5
[2021-03-26 07:51] LABS: Hepatitis C Virus Antibody Non-Reactive (NonReactive)
[2021-03-26 08:06] LABS: Hepatitis B Surface Antigen Nonreactive (Negative)
[2021-03-26 08:36] LABS: Total Cells Counted 100
[2021-03-26 08:37] LABS: Anisocytosis 1+; Platelet Estimate Consistent w Auto
--- NOTE | 2021-03-26 08:37 | Progress Note ---
Assessment and Plan Assessment and plan: Abd pain with assoc. diarrhea DANIELLE secondary vasomotor nephropathy SIRS Elevated LFTs. hx recent PE hx esophageal CA 03/24/21. Stool for cx and leukocytes. Empiric abx. IVF Hydration. Consider renal consult. CT A/P 03/25/21. Nurse reports patient with still significant diarrhea and remains h ypotensive. Patient hypokalemia this morning is worse at 2.4. Replete potassium. Increase IVF to 125cc/hr and give NS 1L bolus. Follow-up stool culture and fecal leukocytes. Continue empiric antibiotics. Renal function improved. Check CT of the abdomen and pelvis. 03/26/2021. Patient with abnormal liver enzymes. Etiology likely secondary to hypotension/dehydration. Follow-up hepatitis panel. Diarrhea is improved but still significant. Stool culture pending but no fecal leukocytes. Patient with leukopenia and thrombocytopenia. ? Etiology-? Antibiotics. Consider hematology consultation if persists. Check HIT panel. Potassium improved to 3.0. Continue as needed IV KCl to replete potassium. History Interval history: No new issues Hospitalist Physical - Constitutional Vitals: Temp Pulse Resp BP Pulse Ox 97.4 F L 74 18 90/65 95 03/26/21 05:48 03/26/21 05:48 03/26/21 05:48 03/26/21 05:48 03/26/21 05:48 General appearance: Present: no acute distress, well-nourished - EENT Eyes: Present: PERRL, EOM intact ENT: hearing intact, clear oral mucosa, dentition normal - Neck Neck: Present: supple, normal ROM - Respiratory Respiratory effort: normal Respiratory: bilateral: CTA - Cardiovascular Rhythm: regular Heart Sounds: Present: S1 & S2. Absent: gallop, rub - Extremities Extremities: no ischemia, No edema, Full ROM - Abdominal General gastrointestinal: soft, non-tender, non-distended, normal bowel sounds - Integumentary Integumentary: Present: clear, warm, dry - Neurologic Neurologic: CNII-XII intact, moves all extremities HEART Score - HEART Score Troponin: Troponin T < 0.010 ng/mL (0.00-0.029) 03/24/21 06:02 Results - Labs CBC & Chem 7: 03/26/21 04:00 03/26/21 05:00 Labs: Laboratory Last Values WBC 2.6 K/mm3 (4.5-11.0) L 03/26/21 04:00 RBC 3.44 M/mm3 (3.65-5.03) L 03/26/21 04:00 Hgb 11.6 gm/dl (11.8-15.2) L 03/26/21 04:00 Hct 35.5 % (35.5-45.6) 03/26/21 04:00 MCV 103 fl (84-94) H 03/26/21 04:00 MCH 34 pg (28-32) H 03/26/21 04:00 MCHC 33 % (32-34) 03/26/21 04:00 RDW 14.3 % (13.2-15.2) 03/26/21 04:00 Plt Count 125 K/mm3 (140-440) L 03/26/21 04:00 Lymph % (Auto) 7.9 % (13.4-35.0) L 03/25/21 04:00 [place] % (Auto) [facility] 03/26/21 04:00 Eos % (Auto) 0.5 % (0.0-4.3) 03/25/21 04:00 Baso % (Auto) 0.2 % (0.0-1.8) 03/25/21 04:00 Lymph # (Auto) 0.4 K/mm3 (1.2-5.4) L 03/25/21 04:00 [place] # (Auto) 0.6 K/mm3 (0.0-0.8) 03/25/21 04:00 Eos # (Auto) 0.0 K/mm3 (0.0-0.4) 03/25/21 04:00 Baso # (Auto) 0.0 K/mm3 (0.0-0.1) 03/25/21 04:00 Add Manual Diff Complete 03/24/21 05:59 Total Counted 100 03/24/21 05:59 Seg Neutrophils % 79.2 % (40.0-70.0) H 03/25/21 04:00 Seg Neuts % (Manual) 75.0 % (40.0-70.0) H 03/24/21 05:59 Band Neutrophils % 10.0 % 03/24/21 05:59 Lymphocytes % (Manual) 6.0 % (13.4-35.0) L 03/24/21 05:59 Monocytes % (Manual) 8.0 % (0.0-7.3) H 03/24/21 05:59 Myelocytes % 1.0 % 03/24/21 05:59 Nucleated RBC % Not Reportable 03/24/21 05:59 Seg Neutrophils # 4.1 K/mm3 (1.8-7.7) 03/25/21 04:00 Seg Neutrophils # Man 4.1 K/mm3 (1.8-7.7) 03/24/21 05:59 Band Neutrophils # 0.5 K/mm3 03/24/21 05:59 Lymphocytes # (Manual) 0.3 K/mm3 (1.2-5.4) L 03/24/21 05:59 Abs React Lymphs (Man) 0.0 K/mm3 03/24/21 05:59 Monocytes # (Manual) 0.4 K/mm3 (0.0-0.8) 03/24/21 05:59 Eosinophils # (Manual) 0.0 K/mm3 (0.0-0.4) 03/24/21 05:59 Basophils # (Manual) 0.0 K/mm3 (0.0-0.1) 03/24/21 05:59 Metamyelocytes # 0.0 K/mm3 03/24/21 05:59 Myelocytes # 0.1 K/mm3 03/24/21 05:59 Promyelocytes # 0.0 K/mm3 03/24/21 05:59 Blast Cells # 0.0 K/mm3 03/24/21 05:59 WBC Morphology Not Reportable 03/24/21 05:59 Hypersegmented Neuts Not Reportable 03/24/21 05:59 Hyposegmented Neuts Not Reportable 03/24/21 05:59 Hypogranular Neuts Not Reportable 03/24/21 05:59 Smudge Cells Not Reportable 03/24/21 05:59 Toxic Granulation Not Reportable 03/24/21 05:59 Toxic Vacuolation Not Reportable 03/24/21 05:59 Dohle Bodies Not Reportable 03/24/21 05:59 Pelger-Huet Anomaly Not Reportable 03/24/21 05:59 Luzmaria Rods Not Reportable 03/24/21 05:59 Platelet Estimate Consistent w auto 03/24/21 05:59 Clumped Platelets Not Reportable 03/24/21 05:59 Plt Clumps, EDTA Not Reportable 03/24/21 05:59 Large Platelets Not Reportable 03/24/21 05:59 Giant Platelets Not Reportable 03/24/21 05:59 Platelet Satelliting Not Reportable 03/24/21 05:59 Plt Morphology Comment Not Reportable 03/24/21 05:59 RBC Morphology Not Reportable 03/24/21 05:59 Dimorphic RBCs Not Reportable 03/24/21 05:59 Polychromasia Not Reportable 03/24/21 05:59 Hypochromasia Not Reportable 03/24/21 05:59 Poikilocytosis Not Reportable 03/24/21 05:59 Anisocytosis Not Reportable 03/24/21 05:59 Microcytosis Not Reportable 03/24/21 05:59 Macrocytosis 1+ 03/24/21 05:59 Spherocytes Not Reportable 03/24/21 05:59 Pappenheimer Bodies Not Reportable 03/24/21 05:59 Sickle Cells Not Reportable 03/24/21 05:59 Target Cells Not Reportable 03/24/21 05:59 Tear Drop Cells Not Reportable 03/24/21 05:59 Ovalocytes Not Reportable 03/24/21 05:59 Helmet Cells Not Reportable 03/24/21 05:59 [place]bane[place] Bodies Not Reportable 03/24/21 05:59 [place] Rings Not Reportable 03/24/21 05:59 Ronaldo Cells Not Reportable 03/24/21 05:59 Bite Cells Not Reportable 03/24/21 05:59 Crenated Cell Not Reportable 03/24/21 05:59 Elliptocytes Not Reportable 03/24/21 05:59 Acanthocytes (Spur) Not Reportable 03/24/21 05:59 Rouleaux Not Reportable 03/24/21 05:59 Hemoglobin C Crystals Not Reportable 03/24/21 05:59 Schistocytes Not Reportable 03/24/21 05:59 Malaria parasites Not Reportable 03/24/21 05:59 Anil Bodies Not Reportable 03/24/21 05:59 Hem Pathologist Commnt No 03/24/21 05:59 Sodium 135 mmol/L (137-145) L 03/26/21 05:00 Potassium 3.0 mmol/L (3.6-5.0) L D 03/26/21 05:00 Chloride 105.3 mmol/L (98-107) 03/26/21 05:00 Carbon Dioxide 18 mmol/L (22-30) L 03/26/21 05:00 Anion Gap 15 mmol/L 03/26/21 05:00 BUN 20 mg/dL (9-20) 03/26/21 05:00 Creatinine 1.0 mg/dL (0.8-1.3) 03/26/21 05:00 Estimated GFR > 60 ml/min 03/26/21 05:00 BUN/Creatinine Ratio 20 % 03/26/21 05:00 Glucose 92 mg/dL (75-100) 03/26/21 05:00 Calcium 7.6 mg/dL (8.4-10.2) L 03/26/21 05:00 Magnesium 1.50 mg/dL (1.7-2.3) L 03/24/21 06:02 Total Bilirubin 0.90 mg/dL (0.1-1.2) 03/26/21 05:00 AST 53 units/L (5-40) H 03/26/21 05:00 ALT 26 units/L (7-56) 03/26/21 05:00 Alkaline Phosphatase 164 units/L (35-129) H 03/26/21 05:00 Troponin T < 0.010 ng/mL (0.00-0.029) 03/24/21 06:02 Total Protein 5.2 g/dL (6.3-8.2) L D 03/26/21 05:00 Albumin 2.3 g/dL (3.9-5) L 03/26/21 05:00 Albumin/Globulin Ratio 0.8 % 03/26/21 05:00 Hepatitis A IgM Ab Non-reactive (NonReactive) 03/26/21 05:00 Hep Bs Antigen Nonreactive (Negative) 03/26/21 05:00 Hep B Core IgM Ab Non-reactive (NonReactive) 03/26/21 05:00 Hepatitis C Antibody Non-reactive (NonReactive) 03/26/21 05:00 Microbiology: Microbiology 03/24/21 11:15 Stool Stool for WBCs - Final NEGATIVE 03/24/21 11:15 Stool - Stool Aspirate Stool Culture - Preliminary Guerrero/IV: Voiding Method Toilet Active Medications - Current Medications Current Medications: Generic Name Dose Route Start Last Admin Trade Name Freq PRN Reason Stop Dose Admin Acetaminophen 650 mg 03/24/21 14:55 Acetaminophen 325 Mg Tab PO Q4H PRN Pain MILD(1-3)/Fever >100.5/BARRY Hydrocodone Bitart/Acetaminophen 2 each 03/24/21 14:57 Hydrocodone/Acetaminophen 5-325 Mg Tab PO Q6H PRN Pain, Moderate (4-6) Heparin Sodium (Porcine) 5,000 unit 03/24/21 22:00 03/26/21 06:11 Heparin 5,000 Unit/1 Ml Vial SUB-Q 5,000 unit Q8HR SURESH Administration Levofloxacin/Dextrose 500 mg in 100 mls @ 100 mls/hr 03/24/21 16:00 03/25/21 16:36 Levaquin 500mg/100ml IV 100 mls/hr Q24H SURESH Administration Protocol Potassium Chloride/Sodium Chloride 40 meq in 1,000 mls @ 125 mls/hr 03/25/21 08:00 03/26/21 06:08 Ns/Kcl 40meq IV 125 mls/hr DIRECT SURESH Administration Morphine Sulfate 4 mg 03/24/21 15:44 Morphine 2 Mg/1 Ml Inj IV Q4H PRN Pain , Severe (7-10) Ondansetron HCl 4 mg 03/24/21 14:55 Ondansetron 4 Mg/2 Ml Inj IV Q8H PRN Nausea And Vomiting Sodium Chloride 10 ml 03/24/21 22:00 03/25/21 23:14 Sodium Chloride 0.9% 10 Ml Flush Syringe IV 10 ml BID SURESH Administration Sodium Chloride 10 ml 03/24/21 14:55 Sodium Chloride 0.9% 10 Ml Flush Syringe IV PRN PRN LINE FLUSH
[2021-03-26] MEDS ORDERED: POTASSIUM CHLORIDE ER 20 MEQ TAB PO ONE ×2 (08:38→12:00)
--- NOTE | 2021-03-26 09:56 | Discharge Summary ---
Providers - Providers Date of Admission: 03/24/21 14:56 Date of discharge: 03/26/21 Attending physician: NEREIDA BRUCE 03/24/21 14:57 Consult to Physician [CONS] Routine Comment: Consulting Provider: MIREYA SANTA Physician Instructions: Reason For Exam: gastroenteritis Hospitalization Reason for admission: diarrhea Condition: Serious Hospital course: 66-year-old male presents to the emergency department with complaint of a 4 to 5-day history of copious diarrhea and fever. Pt. was on vacation in [facility] when he developed acute diarrhea, watery, with fevers. He normally has 1-2 BM/day, but now it is up to 5-6/day. He denied emesis (can't because of prior esophagus surgery) but has been able to tolerate solids/liquids. His fevers resolved a few days ago. There were no ill contacts or recent antibiotics. 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 Pt admitted for gastroenteritis. Hospital course 03/24/21. Stool for cx and leukocytes. Empiric abx. IVF Hydration. Consider renal consult. CT A/P 03/25/21. Nurse reports patient with still significant diarrhea and remains hypotensive. Patient hypokalemia this morning is worse at 2.4. Replete potassium. Increase IVF to 125cc/hr and give NS 1L bolus. Follow-up stool culture and fecal leukocytes. Continue empiric antibiotics. Renal function improved. Check CT of the abdomen and pelvis. 03/26/2021. Patient with abnormal liver enzymes. Etiology likely secondary to hypotension/dehydration. Follow-up hepatitis panel. Diarrhea is improved with only 2 stools overnight. Stool culture pending but no fecal leukocytes. Patient with leukopenia and thrombocytopenia. ? Etiology-? Antibiotics. OP hematology consultation if needed. HIT panel ordered and f/u as OP. Potassium improved to 3.0. Continue as needed IV KCl to replete potassium. D/C after 2nd potassium dose. Final Discharge Diagnosis (Prints w/discharge instructions): viral gastroenteritis Time spent for discharge: 35 Core Measure Documentation - Palliative Care Palliative Care/ Comfort Measures: Not Applicable - Core Measures Any of the following diagnoses?: none Exam - Constitutional Vitals: Temp Pulse Resp BP Pulse Ox 97.4 F L 74 18 90/65 95 03/26/21 05:48 03/26/21 05:48 03/26/21 05:48 03/26/21 05:48 03/26/21 05:48 General appearance: Present: no acute distress, well-nourished - EENT Eyes: Present: PERRL ENT: hearing intact, clear oral mucosa - Neck Neck: Present: supple, normal ROM - Respiratory Respiratory effort: normal Respiratory: bilateral: CTA - Cardiovascular Heart Sounds: Present: S1 & S2. Absent: rub, click - Extremities Extremities: pulses symmetrical, No edema Peripheral Pulses: within normal limits - Abdominal General gastrointestinal: Present: soft, non-tender, non-distended, normal bowel sounds Male genitourinary: Present: normal - Integumentary Integumentary: Present: clear, warm, dry - Musculoskeletal Musculoskeletal: gait normal, strength equal bilaterally - Psychiatric Psychiatric: appropriate mood/affect, intact judgment & insight - Neurologic Neurologic: CNII-XII intact, moves all extremities Plan Activity: advance as tolerated Weight Bearing Status: Weight Bear as Tolerated Diet: regular Additional Instructions: Patient with leukopenia and thrombocytopenia. F/U with PCP. OP hematology follow up--if needed. HIT panel ordered and f/u as OP. Follow up with: MARQUESS FLORENCIA [Other] - 7 Days Prescriptions: levoFLOXacin [Levaquin TAB] 500 mg PO QDAY #3 tablet
--- NOTE | 2021-03-26 09:59 | Gastroenterology Progress Note ---
Assessment and Plan - Patient Problems (1) Abnormal liver enzymes Current Visit: Yes Status: Acute Plan to address problem: - May be from hypotension/dehydration, and hepatitis panel negative, as was covid at home. - Continue aggressive hydration. - Improved today, and would not change abx route. (2) Diarrhea Current Visit: Yes Status: Acute Qualifiers: Qualified Code(s): R19.7 - Diarrhea, unspecified Plan to address problem: - Stool cultures pending, and but WBC negative; suspect viral, but improved with abx (cipro). - Continue regular diet. - OK to discharge home per our service on PO levoflox x 5 days total (today is day 2). We will sign off; please call if needed. Subjective Date of service: 03/26/21 Principal diagnosis: Diarrhea Interval history: The patient feels well today, with only 2 watery BM since yesterday, and no cramps, N/V, or bleeding. He is tolerating a regular (soft) diet. He has no CP or SOB. Objective - Constitutional Vitals: Temp Pulse Resp BP Pulse Ox 97.4 F L 74 18 90/65 95 03/26/21 05:48 03/26/21 05:48 03/26/21 05:48 03/26/21 05:48 03/26/21 05:48 General appearance: no acute distress - Respiratory Respiratory effort: normal Respiratory: bilateral: CTA - Cardiovascular Rhythm: regular Heart Sounds: Present: S1 & S2 - Gastrointestinal General gastrointestinal: Present: soft, non-tender, non-distended - Labs CBC & Chem 7: 03/26/21 04:00 03/26/21 05:00 Labs: Laboratory Results - last 24 hr 03/26/21 03/26/21 03/26/21 04:00 05:00 05:00 WBC 2.6 L RBC 3.44 L Hgb 11.6 L Hct 35.5 MCV 103 H MCH 34 H MCHC 33 RDW 14.3 Plt Count 125 L [place] % (Auto) Investigative Agent Add Manual Diff Complete Total Counted 100 Seg Neuts % (Manual) 83.0 H Band Neutrophils % 1.0 Lymphocytes % (Manual) 2.0 L Monocytes % (Manual) 13.0 H Eosinophils % (Manual) 1.0 Nucleated RBC % Not Reportable Seg Neutrophils # Man 2.2 Band Neutrophils # 0.0 Lymphocytes # (Manual) 0.1 L Abs React Lymphs (Man) 0.0 Monocytes # (Manual) 0.3 Eosinophils # (Manual) 0.0 Basophils # (Manual) 0.0 Metamyelocytes # 0.0 Myelocytes # 0.0 Promyelocytes # 0.0 Blast Cells # 0.0 WBC Morphology Not Reportable Hypersegmented Neuts Not Reportable Hyposegmented Neuts Not Reportable Hypogranular Neuts Not Reportable Smudge Cells Not Reportable Toxic Granulation Not Reportable Toxic Vacuolation Not Reportable Dohle Bodies Not Reportable Pelger-Huet Anomaly Not Reportable Luzmaria Rods Not Reportable Platelet Estimate Consistent w auto Clumped Platelets Not Reportable Plt Clumps, EDTA Not Reportable Large Platelets Not Reportable Giant Platelets Not Reportable Platelet Satelliting Not Reportable Plt Morphology Comment Not Reportable RBC Morphology Not Reportable Dimorphic RBCs Not Reportable Polychromasia Not Reportable Hypochromasia Not Reportable Poikilocytosis Not Reportable Anisocytosis 1+ Microcytosis Not Reportable Macrocytosis Not Reportable Spherocytes Not Reportable Pappenheimer Bodies Not Reportable Sickle Cells Not Reportable Target Cells Not Reportable Tear Drop Cells Not Reportable Ovalocytes Not Reportable Helmet Cells Not Reportable [place]bane[place] Bodies Not Reportable [place] Rings Not Reportable Ronaldo Cells Not Reportable Bite Cells Not Reportable Crenated Cell Not Reportable Elliptocytes Not Reportable Acanthocytes (Spur) Not Reportable Rouleaux Not Reportable Hemoglobin C Crystals Not Reportable Schistocytes Not Reportable Malaria parasites Not Reportable Anil Bodies Not Reportable Hem Pathologist Commnt No Sodium 135 L Potassium 3.0 L D Chloride 105.3 Carbon Dioxide 18 L Anion Gap 15 BUN 20 Creatinine 1.0 Estimated GFR > 60 BUN/Creatinine Ratio 20 Glucose 92 Calcium 7.6 L Total Bilirubin 0.90 AST 53 H ALT 26 Alkaline Phosphatase 164 H Total Protein 5.2 L D Albumin 2.3 L Albumin/Globulin Ratio 0.8 Hepatitis A IgM Ab Non-reactive Hep Bs Antigen Nonreactive Hep B Core IgM Ab Non-reactive Hepatitis C Antibody Non-reactive
--- NOTE | 2021-03-28 18:45 | Electrocardiograph Report ---
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
== END 2021-03-26 11:45 | disposition home or self-care (01) | DRG 391 ==
LOC: ED 04:37 → 3A 08:10 → OBSVTOIN 14:56
PROVIDERS: ADMIT Hospitalist; ATTEND Hospitalist
DX: A08.4 Viral intestinal infection, unspecified (principal); N17.0 Acute kidney failure with tubular necrosis; E87.1 Hypo-osmolality and hyponatremia; R65.10 Systemic inflammatory response syndrome (SIRS) of non-infectious origin without acute organ dysfunction; I95.9 Hypotension, unspecified; E87.6 Hypokalemia; E87.8 Other disorders of electrolyte and fluid balance, not elsewhere classified; C80.1 Malignant (primary) neoplasm, unspecified; Z85.01 Personal history of malignant neoplasm of esophagus; Z86.711 Personal history of pulmonary embolism
CPT/HCPCS: 36415; 74022; 74176; 80048; 80053; 80074; 83735; 84484; 85007; 85025; 86022; 87045; 93005; G0378; J1644; J1956; J3475; J3480; J7030; J7040